=== PATIENT | female | born 1975 | race Caucasian/White ===

== ENCOUNTER 2019-10-30 14:26 | Outpatient (CLI) | payer OTHER, SELFPAY ==
--- NOTE | ~2019-10-30 | MM_ITS ---
EXAMINATION: MM screening leni BI w lat[place] HISTORY: Screening mammogram TECHNIQUE: Craniocaudal and mediolateral oblique 3-D tomosynthesis images were obtained and synthetic 2-D images were generated. CAD analysis was submitted and interpreted. COMPARISON: 08/05/2018 bilateral digital screening mammogram BREAST PARENCHYMAL COMPOSITION: There are scattered areas of fibroglandular density. FINDINGS: There is no evidence of suspicious mass, calcification, or architectural distortion to sugg est malignancy in either breast. There has been no suspicious interval change. IMPRESSION: 1. No mammographic evidence of malignancy. 2. Recommend routine screening mammography in one year. BI-RADS Category 1: Negative Reviewed, dictated and finalized at location A.
== END 2019-10-30 14:27 | disposition home or self-care (01) ==
LOC: ANHIMG 14:28
PROVIDERS: PCP Internal Medicine; Visit Provider Obstetrics & Gynecology
DX: Z12.31 Encounter for screening mammogram for malignant neoplasm of breast (principal)
CPT/HCPCS: 77063; 77067

== ENCOUNTER 2019-11-24 00:44 | Outpatient (CLI) | payer OTHER, SELFPAY ==
[2019-11-24 17:00] LABS: SARS-CoV-2 RNA PCR Negative
== END 2019-11-24 00:45 | disposition home or self-care (01) ==
LOC: ANHCOVIDDT 00:44
PROVIDERS: PCP Internal Medicine; Visit Provider Obstetrics & Gynecology
DX: Z20.828 Contact with and (suspected) exposure to other viral communicable diseases (principal); Z01.812 Encounter for preprocedural laboratory examination
CPT/HCPCS: 87635; C9803; U0003

== ENCOUNTER 2019-11-24 08:39 | Outpatient (CLI) | payer OTHER, SELFPAY ==
--- NOTE | 2019-11-24 09:12 | ECG_ITS ---
Measurements Intervals [place] Rate: 65 P: -5 MS: 132 QRS: 36 QRSD: 85 T: 9 QT: 425 QTc: 444 Interpretive Statements SINUS RHYTHM LOW QRS VOLTAGE IN PRECORDIAL LEADS BORDERLINE T WAVE ABNORMALITY- INFERIOR LEADS BORDERLINE ECG Electronically Signed On 11-24-2019 10:10:53 CDT by Venkat Malone D.O.
== END 2019-11-24 08:40 | disposition home or self-care (01) ==
LOC: ANHLAB 08:42
PROVIDERS: PCP Internal Medicine; Visit Provider Obstetrics & Gynecology
DX: N39.3 Stress incontinence (female) (male) (principal); I10 Essential (primary) hypertension; Z01.818 Encounter for other preprocedural examination; R94.31 Abnormal electrocardiogram [ECG] [EKG]
CPT/HCPCS: 36415; 86850; 86900; 86901; 93005

== ENCOUNTER 2019-11-26 01:02 | Day surgery (SDC) | payer OTHER, SELFPAY ==
[2019-11-14 15:21] VITALS: BMI 27.4
--- NOTE | 2019-11-25 21:50 | PM.IMHP ---
H&P: HPI History of Present Illness Chief complaint: ROGE Narrative: 44 y/o who is tired of having small volume loss of urine. She will leak with coughing, sneezing, lifting, laughing, and sometimes with intercourse. She has nocturia once a night. She has no dysuria, no urgency, no frequency, no hematuria. She feels like she empties her bladder fully. When she works out at the gym, she has to stop her workout fci through to go empty her bladder again so she does not leak so much. She has to cross her legs when she sneezes. Review of Systems Review of Systems: All systems reviewed & are unremarkable except as noted in HPI and below PMFSH Past Medical History Medical History (Updated 11/25/19 @ 21:56 by Alex Mayer MD) Anxiety Depression Hypertension Surgical History Surgical History History of Achilles tendon repair History of cholecystectomy Family History Family History Mother Hypertension Father Family history of diabetes mellitus in first degree relative Other Family history of malignant neoplasm Social History Social History Smoking status: Never smoker Second hand tobacco smoke exposure: No Alcohol intake: current Meds Home Medications and Allergies Home Medications Medication Instructions Recorded Confirmed Type lorazepam 0.5 mg tablet 0.5 mg PO BID PRN #30 tablet 08/26/19 11/14/19 Rx sertraline 50 mg tablet 50 mg PO DAILY #90 tablet 09/02/19 11/14/19 Rx losartan 100 mg tablet 100 mg PO DAILY #90 tablet 09/24/19 11/14/19 Rx cetirizine 10 mg PO DAILY 11/14/19 11/14/19 History Allergies Allergy/AdvReac Type Severity Reaction Status Date / Time codeine Allergy Unknown Nausea And Verified 11/14/19 15:22 Vomiting ondansetron AdvReac Unknown Anxiety Verified 11/14/19 15:22 Exam Const: Orientation/consciousness: patient oriented x3 Other: Well-developed, well-nourished female in no acute distress. Neck: Thyroid: thyroid normal Lymphatic: no lymphadenopathy noted (in neck, axilla or inguinal nodes) Resp: Effort & Inspection: normal respiratory effort Auscultation: clear to auscultation bilaterally Cardio: Rate: regular rate Rhythm: regular rhythm Heart sounds: S1 normal heart sound present and S2 normal heart sound present GI: Other: ABD: Soft, nontender, nondistended. No guarding or rebound tenderness. No hepatosplenomegaly. : General: Yes no CVA tenderness Other: External genitalia: normal female hair distribution, without lesion. Urethral meatus: no lesion, non prolapsed. Urethral hypermobility is obvious. PVR is 10mL. Bladder: no mass, nontender Vagina: well-estrogenized, without lesion or discharge. No cystocele or rectocele. Cervix: no lesion or discharge. IUD strings are noted. Uterus: small, anteverted, freely mobile, nontender Adnexa: no mass or tenderness. Anus/perineum: no lesions, nontender Back/Spine/Pelvis: Back: no CVA tenderness Skin: General skin exam: normal color and no rashes or lesions noted Neuro: General: patient oriented x3 Extrem: Other: Extremities: nontender with no edema Psych: Mental Status: mental status grossly normal Affect: normal affect Assessment and Plan Assessment and plan (1) ROGE (stress urinary incontinence, female): Code(s): N39.3 - Stress incontinence (female) (male) Status: Acute Assessment and Plan: We have reviewed options and the patient is interested in surgical management. I have offered TVT with cystoscopy. She understands risks of surgery to include risks of anesthesia, risks of pain, infection, bleeding, blood products, thromboembolic phenomena and damage to adjacent structures such as bowel, bladder, ureters, blood vessels and nerves. Furthermore, she understands risks associated with mesh erosion, ri
[2019-11-26] VITALS (9 sets, daily range): BP systolic 132–158; BP diastolic 78–98; PULSE 58–117; RESP 11–18; TEMP 36.1–36.7; O2SAT 100
--- NOTE | 2019-11-26 12:27 | WPDHPUPDATE1 ---
History and Physical Update Update Date/Time: 11/26/19 12:27 History and Physical has been reviewed, including an updated exam of the patient. There are NO changes in the patient's condition. Risks, benefits, and alternatives have been discussed and questions answered. Patient agrees to proceed with procedure.
[2019-11-26] MEDS: LACTATED RINGERS 1,000 ML 30 ML IV CONT (13:00)
--- NOTE | 2019-11-26 13:08 | P.PNAN_ITS ---
Anes - Initial Pre Proc Eval Procedure: Operation Date: 11/26/19 12:45 Proposed Procedures p Tension Free Vaginal Taping - Alex Mayer MD Date/Time: 11/26/19 13:08 Surgeon: Alex Mayer MD Pre Op Diagnosis: ROGE Patient Data Age: 44 Gender: F Height: 1.63 m Weight: 72.9 kg Allergies Allergy/AdvReac Type Severity Reaction Status Date / Time codeine Allergy Unknown Nausea And Verified 11/26/19 13:01 Vomiting ondansetron AdvReac Unknown Anxiety Verified 11/26/19 13:01 Home Medications Medication Instructions Recorded Confirmed Type lorazepam 0.5 mg tablet 0.5 mg PO BID PRN #30 tablet 08/26/19 11/26/19 Rx sertraline 50 mg tablet 50 mg PO DAILY #90 tablet 09/02/19 11/26/19 Rx losartan 100 mg tablet 100 mg PO DAILY #90 tablet 09/24/19 11/26/19 Rx cetirizine 10 mg PO DAILY 11/14/19 11/26/19 History Patient hx anesthesia problems: none Family hx anesthesia problems: none [facility], [facility] Past Medical History Medical History (Updated 11/25/19 @ 21:56 by Alex Mayer MD) Anxiety Depression Hypertension Surgical History Surgical History History of Achilles tendon repair History of cholecystectomy Family History Family History Mother Hypertension Father Family history of diabetes mellitus in first degree relative Other Family history of malignant neoplasm Social History Social History Smoking status: Never smoker Second hand tobacco smoke exposure: No Alcohol intake: current Anes - Eval Final PreProcedure Day of Procedure 11/26/19 13:08 Patient weight: overweight Heart: regular rate and rhythm Lungs: clear to auscultation and normal air movement Airway: Mallampati scale class 1 Neurological: alert and oriented Last oral intake: >/= 8 hours ASA classification: II Emergent: no Anesthetic plan: proceed Anesthesia type and monitoring: general LMA and standard monitoring Informed Consent: The patient's anesthetic plan and its attendant risks and benefits were discussed with the patient/family/POA. Questions were solicited and answers provided to the satisfaction of the patient/family/POA.
[2019-11-26] MEDS: SCOPOLAMINE 1.5 MG PATCH TRANSDERM (13:10)
[2019-11-26] MEDS: KETOROLAC 30 MG/ML VIAL (*BKC) IV PUSH (14:31)
--- NOTE | 2019-11-26 14:53 | PM.PROC ---
Procedure Note - Detailed Date of procedure: 11/26/19 Pre-op diagnosis: ROGE Genuine stress urinary incontinence Post-op diagnosis: same Procedure performed: Tension-free vaginal taping with cystoscopy Description of procedure: The patient was taken to the operating room where general endotracheal anesthesia was administered. She was prepared and draped in the usual sterile fashion in the dorsal lithotomy position. She received cefazolin preoperatively. A Hathaway catheter was placed. The vaginal epithelium underlying the mid-urethra was identified and elevated using Allis clamps. A midline incision was made and was dissected laterally using the Metzenbaum scissors. The bladder was then reflected away to the patient's left and the TVT needle was advanced along the right side, exiting above the symphysis pubis. The bladder was reflected to the contralateral side and the left needle was placed. The Hathaway was withdrawn. Cystoscopy was performed and the bladder was noted to be intact. The Hathaway catheter was replaced and the bladder was drained. The TVT sling was advanced into position using a Parker scissors for spacing. The vaginal epithelium was reapproximated with a single [id number] suture 2 0 chromic. The suprapubic exit sites were reapproximated using Dermabond. Hemostasis was excellent. Sponge, lap, needle and instrument counts were correct. The patient was awakened and taken to recovery room in stable condition. I was present and scrubbed through the entire procedure. Implants: TVT sling Anesthesia: GETA Surgeon: Alex Mayer MD Estimated blood loss (mL): 10 Drains: Yes (hathaway) Packing: No Pathology: none sent Complications: None Condition: stable Disposition: PACU Findings: Bladder intact. Bilateral ureteral ejaculation noted.
--- NOTE | 2019-11-26 15:48 | SUR.PHASEI ---
1540; INSTILLED 150ML STERILE NS INTO BLADDER. HEWITT THEN REMOVED PER DR ROBISON'S ORDERS
== END 2019-11-26 17:22 | disposition home or self-care (01) ==
PROVIDERS: PCP Internal Medicine; Visit Provider Obstetrics & Gynecology
PROC: 0TSD0ZZ Reposition Urethra, Open Approach (ICD-10-PCS; CPT 57288; principal; 2019-11-26 12:45)
DX: N39.3 Stress incontinence (female) (male) (principal); I10 Essential (primary) hypertension; F41.8 Other specified anxiety disorders
CPT/HCPCS: 57288; A9270; C1771; J1100; J1200; J1885; J2250; J2704; J3010; J7030; J7120

== ENCOUNTER 2021-09-21 12:47 | Outpatient (CLI) | payer OTHER, SELFPAY ==
[2021-09-21 13:38] LABS: Appearance Urine Clear (Clear); Bilirubin Urine Negative (Negative); Blood Urine 2+ (Negative); Color Urine Yellow (Yellow); Glucose Urine UA Negative (Negative); Ketones Urine Negative (Negative); Leukocyte Esterase Ur 2+ LEU/UL (Negative); Nitrate Urine Positive (Negative); Protein Urine Negative (Negative); Urobilinogen Urine 0.2 mg/dL (<2.0); pH Urine 6.5 (5.0-9.0)
[2021-09-21 14:12] LABS: Bacteria Urine Trace /hpf; Mucus Urine Rare /lpf; RBC Urine 0-2 /hpf (0-2); Squamous Epithelial Cell Urine Occasional /hpf (Few); WBC Urine 21-30 /hpf
[2021-09-21 14:14] LABS: Add Urine Microscopic? YES
== END 2021-09-21 12:48 | disposition home or self-care (01) ==
LOC: ANHLAB 12:48
PROVIDERS: PCP Internal Medicine; Visit Provider Internal Medicine
DX: R30.0 Dysuria (principal)
CPT/HCPCS: 81001; 87077; 87086; 87186

== ENCOUNTER 2021-10-25 13:09 | Outpatient (CLI) | payer OTHER, SELFPAY ==
[2021-10-25 13:43] LABS: Appearance Urine Slightly Cloudy (Clear); Bilirubin Urine Negative (Negative); Blood Urine 2+ (Negative); Glucose Urine UA Negative (Negative); Ketones Urine Negative (Negative); Leukocyte Esterase Ur 3+ LEU/UL (Negative); Nitrate Urine Negative (Negative); Protein Urine Negative (Negative); Specific Grav Ur 1.015 (1.001-1.035); Urobilinogen Urine 0.2 mg/dL (<2.0)
[2021-10-25 13:47] LABS: Add Urine Microscopic? YES; Color Urine Light Yellow (Yellow)
[2021-10-25 13:49] LABS: Bacteria Urine Trace /hpf; Mucus Urine Rare /lpf; Squamous Epithelial Cell Urine Rare /hpf (Few); WBC Urine >75 /hpf
== END 2021-10-25 13:10 | disposition home or self-care (01) ==
LOC: ANHLAB 13:10
PROVIDERS: PCP Internal Medicine; Visit Provider Internal Medicine
DX: R30.0 Dysuria (principal)
CPT/HCPCS: 81001; 87086

== ENCOUNTER 2022-01-26 15:50 | Outpatient (CLI) | payer OTHER, SELFPAY ==
--- NOTE | ~2022-01-26 | MM_ITS ---
EXAMINATION: MM screening leni BI w [place] HISTORY: Screening mammogram TECHNIQUE: Craniocaudal and mediolateral oblique 3-D tomosynthesis images were obtained and synthetic 2-D images were generated. CAD analysis was submitted and interpreted. COMPARISON: 10/30/2019 and bilateral screening mammogram examinations BREAST PARENCHYMAL COMPOSITION: There are scattered areas of fibroglandular density. FINDINGS: There is no evidence of suspicious mass, calcification, or architectural distortion to sugg est malignancy in either breast. There has been no suspicious interval change. IMPRESSION: 1. No mammographic evidence of malignancy. 2. Recommend routine screening mammography in one year. BI-RADS Category 1: Negative Reviewed, dictated and finalized at location A.
== END 2022-01-26 15:51 | disposition home or self-care (01) ==
PROVIDERS: PCP Internal Medicine; Visit Provider Obstetrics & Gynecology
DX: Z12.31 Encounter for screening mammogram for malignant neoplasm of breast (principal)
CPT/HCPCS: 77063; 77067

== ENCOUNTER 2022-10-30 14:31 | Emergency (ER) | payer OTHER, BC, SELFPAY ==
--- NOTE | ~2022-10-30 | CT_ITS ---
EXAMINATION: CT abdomen pelvis w con DATE: 10/30/2022 20:55 INDICATION: N/V TECHNIQUE: Computed tomography (CT) of the abdomen and pelvis was performed with 100 mL Omnipaque-350 intravenous contrast. Automated exposure control and iterative reconstruction technique were employe d. The dose-length product was 605.96 mGy-cm. COMPARISON: 07/19/2015. FINDINGS: Lower thorax: Unremarkable. Left lower lobe peripheral intrapulmonary lymph node. Liver: Normal. Biliary/Gallbladder: Gallbladder is absent. No bile duct dilation. Pancreas: No mass or duct dilation. Spleen: Normal. Adrenals:No mass. Kidneys: No mass, stone, or hydronephrosis. GI tract: Distal esophageal and gastric wall edema. Fluid-filled colon. No small or large bowel dilat ion. Normal appendix. Mesentery/Peritoneum: No ascites, mass, or free air. Retroperitoneum: No mass. Pelvis: Uterine fibroids. Bladder wall edema. Soft Tissues: Soft tissues and body wall unremarkable. Bones: No acute osseous finding. IMPRESSION: Mild esophagitis/gastritis. Fluid-filled colon as can be seen with diarrheal illness. Bladder wall ed sobeida, possibly due to cystitis, correlate with urinalysis. Reviewed, dictated and finalized at location K. IMPRESSION: Mild esophagitis/gastritis. Fluid-filled colon as can be seen with diarrheal il lness. Bladder wall edema, possibly due to cystitis, correlate with urinalysis.
[2022-10-30 14:57] VITALS: BP 131/95; PULSE 97; RESP 18; TEMP 36.5; O2SAT 100
[2022-10-30 15:08] LABS: Basophils Percent Auto 0.2 % (0.2-1.2); Eosinophils Percent Auto 0.2 % (0-4.4); Hemoglobin 13.3 g/dL (12.0-15.0); Immature Granulocyte Absolute 0.09 K/mm3 (0.00-0.031); Immature Granulocyte Percent A 0.4 % (0-0.5); Lymphocytes Absolute Auto 1.68 K/mm3 (0.9-3.2); Lymphocytes Percent Auto 7.9 % (18.3-44.2); Mean Corpuscular HGB Conc 33.3 g/dl (32-36); Mean Corpuscular Hemoglobin 27.4 pg (26-34); Mean Corpuscular Volume 82.5 fl (80-100); Mean Platelet Volume 9.4 fl (7.4-10.4); Monocytes Percent Auto 4.5 % (2.6-8.5); Neutrophils Absolute Auto 18.4 K/mm3 (1.3-6.7); Neutrophils Percent Auto 86.8 % (45.5-73.1); Platelet Count Result 463 k/mm3 (150-375); Red Blood Count 4.85 M/mm3 (4.2-5.4); Red Cell Distribution Width 12.4 % (11.5-14.5); White Blood Count 21.2 K/mm3 (4.5-10.0)
[2022-10-30 15:30] LABS: Alanine Aminotransferase 27 U/L (6-35); Alkaline Phosphatase 80 U/L (38-126); Anion Gap 19 mmol/L (8-16); Aspartate Amino Transferase 37 U/L (14-36); Blood Urea Nitrogen 8 mg/dL (7-17); Calcium 9.3 mg/dL (8.4-10.2); Carbon Dioxide 12 mmol/L (22-30); Chloride 103 mmol/L (98-107); Estimated Glomerular Filt Rate 60; Glucose 203 mg/dL (65-110); Lipase 45 U/L (23-300); Potassium 3.9 mmol/L (3.4-5.0); Sodium 134 mmol/L (137-145)
[2022-10-30 17:09] VITALS: BP 127/90; PULSE 99; RESP 20; TEMP 36.1; O2SAT 100
--- NOTE | 2022-10-30 20:08 | ED.GENADULT ---
HPI - General Adult General Chief complaint: Nausea/Vomiting/Diarrhea <Manuel Lovett PA-C - Last Filed: 10/30/22 22:17> Stated complaint: N/V since 11 today <Manuel Lovett PA-C - Last Filed: 10/30/22 22:17> Time Seen by Provider: 10/30/22 20:02 <Manuel Lovett PA-C - Last Filed: 10/30/22 22:17> Source: patient <AREN Vila Last Filed: 10/30/22 22:17> Mode of arrival: ambulatory <AREN Vila Last Filed: 10/30/22 22:17> Limitations: no limitations <Manuel Lovett PA-C - Last Filed: 10/30/22 22:17> History of Present Illness HPI narrative: This is a 47-year-old female with history of IBS who presents to the ED via EMS for chief complaint of sudden onset of nausea and vomiting around 1130 this morning. 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 Reports over 10 episodes of vomiting with last episode 4 hours ago.. Denies hematemesis. Also reports an episode of loose stools this morning. Before today bowel movements have been regular for her. She is passing gas. She denies any abdominal pain whatsoever. Denies fevers or chills, cough, urinary symptoms. She is unsure of any association with food. No known sick contacts. Her is here and ate the same things that she did last night and has not had any problems. States she has not eaten anything today. Past surgical history of cholecystectomy. <AREN Vila Last Filed: 10/30/22 22:17> Related Data Home medications: Home Medications Medication Instructions Recorded Confirmed cetirizine 10 mg tablet 10 mg PO DAILY 11/14/19 08/16/22 <Manuel Lovett PA-C - Last Filed: 10/30/22 22:17> Allergies/adverse reactions: Allergies Allergy/AdvReac Type Severity Reaction Status Date / Time codeine Allergy Unknown Nausea And Verified 10/30/22 20:08 Vomiting sulfamethoxazole AdvReac Intermediate Vomiting Verified 10/30/22 20:08 [From Bactrim] trimethoprim [From Bactrim] AdvReac Intermediate Vomiting Verified 10/30/22 20:08 <Manuel Lovett PA-C - Last Filed: 10/30/22 22:17> Review of Systems Review of Systems: CONSTITUTIONAL: Denies fever, chills, or sweats. EYES: Denies visual changes, redness, or discharge. ENT: Denies rhinorrhea, congestion, sore throat, or otalgia. CARDIOVASCULAR: Denies chest pain, palpitations, or edema. RESPIRATORY: Denies cough or dyspnea. GASTROINTESTINAL: See HPI GENITOURINARY: Denies dysuria or hematuria. SKIN: Denies rash or itching. MUSCULOSKELETAL: Denies back pain, joint pain, or myalgia. NEUROLOGIC: Denies headache, numbness, dizziness, or weakness. PSYCHIATRIC: Denies anxiety or depression. <Manuel Lovett PA-C - Last Filed: 10/30/22 22:17> [facility] Past Medical History Medical History: Medical History Anxiety Depression Hypertension <Manuel Lovett PA-C - Last Filed: 10/30/22 22:17> Surgical History Surgical History: Surgical History History of Achilles tendon repair History of cholecystectomy History of tonsillectomy <Manuel Lovett PA-C - Last Filed: 10/30/22 22:17> Family History Family History: Family History Mother Hypertension Father Family history of diabetes mellitus in first degree relative Other Family history of malignant neoplasm <AREN Vila Last Filed: 10/30/22 22:17> Social History Social History: Social History Smoking status: Never smoker Second hand tobacco smoke exposure: No Alcohol intake: current Lack of Transportation: No Lack of Food: Never True Current Housing: I Have Housing Concerned About Future Housing: No Difficulty Paying Gas/Electric Bills: No Difficulty Paying for Meds: No Currentl
[2022-10-30 20:10] VITALS: BP 159/104; PULSE 80; RESP 18; O2SAT 100
[2022-10-30] MEDS: ONDANSETRON INJ 4 MG/2 ML VIAL IV PUSH (20:25)
[2022-10-30] MEDS: SODIUM CHLORIDE 0.9% IV 1,000 ML 999 ML IV CONT (20:25)
[2022-10-30 21:15] VITALS: BP 155/97; PULSE 89; RESP 16; O2SAT 100
[2022-10-30 21:17] LABS: Influenza A QL RT-PCR Negative (Negative); Influenza B QL RT-PCR Negative (Negative); RSV RNA, RT-PCR Negative (Negative); SARS-CoV-2 RNA PCR Negative (Negative)
[2022-10-30 21:35] LABS: Appearance Urine Turbid (Clear); Bilirubin Urine 2+ (Negative); Blood Urine 1+ (Negative); Color Urine Dark Yellow (Yellow); Glucose Urine UA Negative (Negative); Ketones Urine 1+ mg/dL (Negative); Leukocyte Esterase Ur 3+ LEU/UL (Negative); Need Manual Microscopic Reviewed; Nitrate Urine Negative (Negative); Non Pathogenic Casts >20; Protein Urine 2+ mg/dL (Negative); Specific Grav Ur 1.022 (1.001-1.035); Squamous Epithelial Cell Urine Few /hpf (Few); WBC Urine >100 /hpf; pH Urine 5.5 (5.0-9.0)
[2022-10-30 21:37] LABS: Add Urine Microscopic? YES; Bacteria Urine 2+ /hpf
[2022-10-30 21:54] VITALS: BP 153/90; PULSE 81; RESP 18; O2SAT 100
== END 2022-10-30 21:57 | disposition home or self-care (01) ==
PROVIDERS: Emergency Medicine; Emergency Provider Physician Assistant; PCP Internal Medicine
DX: K52.9 Noninfective gastroenteritis and colitis, unspecified (principal); N39.0 Urinary tract infection, site not specified; Z20.822 Contact with and (suspected) exposure to COVID-19; F41.9 Anxiety disorder, unspecified; F32.A Depression, unspecified; I10 Essential (primary) hypertension
CPT/HCPCS: 36415; 74177; 80053; 81001; 81025; 83690; 85025; 87086; 87637; 96361; 96374; 96375; 99284; J0696; J2405; J7030; Q9967

== ENCOUNTER 2023-04-23 08:15 | Day surgery (SDC) | payer OTHER, BC, SELFPAY ==
[2023-04-06 09:38] VITALS: BMI 27.2
[2023-04-23 10:37] VITALS: BMI 28.1
[2023-04-23 10:54] VITALS: BP 168/110; PULSE 74; RESP 16; TEMP 37.2; O2SAT 100
[2023-04-23] MEDS: LACTATED RINGERS 1,000 ML 150 ML IV CONT (11:05)
--- NOTE | 2023-04-23 11:24 | WPDANESEPPF ---
Anes - Initial Pre Proc Eval Procedure: Operation Date: 04/23/23 13:30 Proposed Procedures p Screening Colonoscopy - David Melchor MD Date/Time: 04/23/23 11:24 Surgeon: David Melchor MD Pre Op Diagnosis: Neoplasm Screening Patient Data Age: 47 Gender: F Height: 1.63 m Weight: 74.5 kg Last Vital Signs Temp 37.2 C 04/23/23 10:54 Pulse 74 04/23/23 10:54 Resp 16 04/23/23 10:54 BP 168/110 H 04/23/23 10:54 Pulse Ox 100 04/23/23 10:54 O2 Del Method Room Air 04/23/23 10:54 Allergies Allergy/AdvReac Type Severity Reaction Status Date / Time sulfamethoxazole AdvReac Intermediate Vomiting Verified 04/23/23 10:38 [From Bactrim] trimethoprim [From Bactrim] AdvReac Intermediate Vomiting Verified 04/23/23 10:38 codeine AdvReac Unknown Nausea And Verified 04/23/23 10:38 Vomiting Home Medications Medication Instructions Recorded Confirmed Type cetirizine 10 mg tablet 10 mg PO DAILY 11/14/19 04/23/23 History sertraline 50 mg tablet 50 mg PO DAILY #90 tabs 06/03/21 04/23/23 Rx albuterol sulfate 90 mcg/actuation 2 inh inhalation Q4-6H #18 grams 06/24/21 04/23/23 Rx aerosol inhaler (ProAir HFA) bupropion HCl 150 mg 24 hr tablet, 150 mg PO QAM #90 tabs 04/03/22 04/23/23 Rx extended release losartan 100 mg tablet 100 mg PO DAILY #90 tabs 04/11/22 04/23/23 Rx lorazepam 0.5 mg tablet 0.5 mg PO BID PRN anxiety #90 tabs 04/17/22 04/23/23 Rx diltiazem HCl 180 mg 180 mg PO DAILY #90 caps 02/14/23 04/23/23 Rx capsule,extended release 24 hr L norgest/E estradiol-E estrad 1 tablet PO DAILY 04/06/23 04/23/23 History 0.15 mg-30 mcg (84)/10 mcg(7) tabs,3mos Patient hx anesthesia problems: none Family hx anesthesia problems: none Results Review: All pre-operative results and documents have been reviewed as part of the pre-operative evaluation. [facility] Past Medical History Medical History Anxiety Depression Hypertension Surgical History Surgical History History of Achilles tendon repair History of cholecystectomy History of tonsillectomy Family History Family History Mother Hypertension Father Family history of diabetes mellitus in first degree relative Other Family history of malignant neoplasm Social History Social History Smoking status: Never smoker Second hand tobacco smoke exposure: No Alcohol intake: current Drinks per week: 8 Substance use: never Substance use type: does not use Lack of Transportation: No Lack of Food: Never True Current Housing: I Have Housing Concerned About Future Housing: No Difficulty Paying Gas/Electric Bills: No Difficulty Paying for Meds: No Currently Unemployed: No Education: Master's Degree or Higher Difficulty w/ Childcare or Family Care: No Living arrangements: with family Spiritual care concerns: No Anes - Eval Final PreProcedure Day of Procedure 04/23/23 11:24 Patient weight: overweight Heart: regular rate and rhythm Lungs: clear to auscultation Airway: Mallampati scale class II Neurological: alert and oriented Last oral intake: >/= 8 hours ASA classification: II Emergent: no Anesthetic plan: proceed Anesthesia type and monitoring: general GIVS and standard monitoring Results Review: All pre-operative results and documents have been reviewed as part of the pre-operative evaluation. Informed Consent: The patient's anesthetic plan and its attendant risks and benefits were discussed with the patient/family/POA. Questions were solicited and answers provided to the satisfaction of the patient/family/POA.
--- NOTE | 2023-04-23 11:44 | PM.HPGS ---
History of Present Illness History of Present Illness Consent: Risks, benefits, and alternatives have been discussed and questions answered. Patient agrees to proceed with procedure. Chief complaint: Neoplasm Screening Narrative: Erica Campos is a 47 year old female here for first screening colonoscopy Review of Systems Constitutional: Constitutional: Denies headache(s) and Denies weakness Eyes: Eyes: Denies blurry vision ENT: Reports Normal hearing present, Denies headache(s) and Denies neck pain Cardiovascular: Cardiovascular: Denies chest pain and Denies dyspnea Respiratory: Respiratory: Denies dyspnea Gastrointestinal: Gastrointestinal: Reports no additional gastrointestinal complaints Genitourinary: Genitourinary: Denies dysuria Musculoskeletal: Musculoskeletal: Denies neck pain Integumentary/Breasts: Skin/Breast: Denies dry skin Neurologic: Reports Normal hearing present, Denies headache(s) and Denies weakness Psychiatric: Psychiatric: Denies anxiety Endocrine: Endocrine: Denies change in body appearance Hematologic/Lymphatic: Hematologic/Lymphatic: Denies easy bleeding Allergic/Immunologic: Allergic/Immunologic: Denies urticaria PMF Past Medical History Medical History (Updated 04/23/23 @ 11:44 by David Melchor MD) Anxiety Colon cancer screening Depression Hypertension Surgical History Surgical History History of Achilles tendon repair History of cholecystectomy History of tonsillectomy Family History Family History Mother Hypertension Father Family history of diabetes mellitus in first degree relative Other Family history of malignant neoplasm Social History Social History Smoking status: Never smoker Second hand tobacco smoke exposure: No Alcohol intake: current Drinks per week: 8 Substance use: never Substance use type: does not use Lack of Transportation: No Lack of Food: Never True Current Housing: I Have Housing Concerned About Future Housing: No Difficulty Paying Gas/Electric Bills: No Difficulty Paying for Meds: No Currently Unemployed: No Education: Master's Degree or Higher Difficulty w/ Childcare or Family Care: No Living arrangements: with family Spiritual care concerns: No Meds Home Medications and Allergies Home Medications Medication Instructions Recorded Confirmed Type cetirizine 10 mg tablet 10 mg PO DAILY 11/14/19 04/23/23 History sertraline 50 mg tablet 50 mg PO DAILY #90 tabs 06/03/21 04/23/23 Rx albuterol sulfate 90 mcg/actuation 2 inh inhalation Q4-6H #18 grams 06/24/21 04/23/23 Rx aerosol inhaler (ProAir HFA) bupropion HCl 150 mg 24 hr tablet, 150 mg PO QAM #90 tabs 04/03/22 04/23/23 Rx extended release losartan 100 mg tablet 100 mg PO DAILY #90 tabs 04/11/22 04/23/23 Rx lorazepam 0.5 mg tablet 0.5 mg PO BID PRN anxiety #90 tabs 04/17/22 04/23/23 Rx diltiazem HCl 180 mg 180 mg PO DAILY #90 caps 02/14/23 04/23/23 Rx capsule,extended release 24 hr L norgest/E estradiol-E estrad 1 tablet PO DAILY 04/06/23 04/23/23 History 0.15 mg-30 mcg (84)/10 mcg(7) tabs,3mos Allergies Allergy/AdvReac Type Severity Reaction Status Date / Time sulfamethoxazole AdvReac Intermediate Vomiting Verified 04/23/23 10:38 [From Bactrim] trimethoprim [From Bactrim] AdvReac Intermediate Vomiting Verified 04/23/23 10:38 codeine AdvReac Unknown Nausea And Verified 04/23/23 10:38 Vomiting Vital Signs Vital Signs - 24 hr 04/23/23 10:54 Temperature 98.9 F Pulse Rate 74 Respiratory Rate 16 Blood Pressure 168/110 H Pulse Oximetry 100 Oxygen Delivery Room Air Exam Const: General: comfortable and no acute distress HENMT: Face/Nose/Sinus: Normal nares present Eyes: General: appearance normal, both ey
[2023-04-23 11:47] VITALS: BP 171/100
--- NOTE | 2023-04-23 11:48 | SUR.PREOP ---
PT'S BP RECHECKED. REMAINS HIGH AT 171/100. PT AWAKE AND ALERT. JESI ALONSO CRNA NOTIFIED.
[2023-04-23 12:06] VITALS: BP 146/100; PULSE 75; RESP 16; O2SAT 100
[2023-04-23 12:16] VITALS: BP 159/103; PULSE 63; RESP 18; O2SAT 100
--- NOTE | 2023-04-23 12:20 | WPDANESPN ---
Anes - Prog Note Post-Op Date/Time: 04/23/23 12:20 Cardiovascular status: normal Respiratory status: normal Airway patency: baseline Mental status: baseline Post-Op hydration status: normal Vital Signs: Last Vital Signs Temp 37.2 C 04/23/23 10:54 Pulse 75 04/23/23 12:06 Resp 16 04/23/23 12:06 BP 146/100 H 04/23/23 12:06 Pulse Ox 100 04/23/23 12:06 O2 Del Method Room Air 04/23/23 12:06 Pain Score (VAS): 0 I/O: Intake & Output 04/22/23 04/23/23 04/23/23 23:59 07:59 15:59 Intake Total 400 Balance 400 Patient Feedback: Patient satisfied with anesthetic care.
[2023-04-23 12:26] VITALS: BP 164/101; PULSE 62; RESP 18; O2SAT 100
== END 2023-04-23 12:40 | disposition home or self-care (01) ==
PROVIDERS: PCP Internal Medicine; Visit Provider Internal Medicine Gastroenterology
PROC: 0DJD8ZZ Inspection of Lower Intestinal Tract, Via Natural or Artificial Opening Endoscopic (ICD-10-PCS; CPT 45378; principal; 2023-04-23 13:30)
DX: Z12.11 Encounter for screening for malignant neoplasm of colon (principal); D12.4 Benign neoplasm of descending colon; K64.8 Other hemorrhoids
CPT/HCPCS: 45385

== ENCOUNTER 2023-04-23 12:13 | Outpatient (NON) | payer OTHER, BC, SELFPAY | END 2023-04-23 12:14 | disposition home or self-care (01) | PROVIDERS: PCP Internal Medicine; Visit Provider Internal Medicine Gastroenterology | DX: Z12.11 Encounter for screening for malignant neoplasm of colon (principal); K63.5 Polyp of colon | CPT/HCPCS: 88305 ==

== ENCOUNTER 2023-07-04 15:17 | Outpatient (CLI) | payer OTHER, BC, SELFPAY ==
--- NOTE | ~2023-07-04 | MM_ITS ---
EXAMINATION: MM screening leni BI w [place] HISTORY: Screening mammogram TECHNIQUE: Craniocaudal and mediolateral oblique 3-D tomosynthesis images were obtained and synthetic 2-D images were generated. CAD analysis was submitted and interpreted. COMPARISON: 01/26/2022, 10/30/2019, 08/05/2018 BREAST PARENCHYMAL COMPOSITION:Not Dense. There are scattered areas of fibroglandular density. FINDINGS: No suspicious mass, calcification, or architectural distortion are identified in either mónica ast to suggest malignancy. There has been no suspicious interval change. IMPRESSION: No mammographic evidence of malignancy. Recommend routine screening mammography in one year. BI-RADS Category 1: Negative Reviewed, dictated and finalized at location . R [employer]
== END 2023-07-04 15:18 | disposition home or self-care (01) ==
LOC: ANHIMG 15:49
PROVIDERS: PCP Internal Medicine; Visit Provider Obstetrics & Gynecology
DX: Z12.31 Encounter for screening mammogram for malignant neoplasm of breast (principal)
CPT/HCPCS: 77063; 77067

== ENCOUNTER 2024-04-08 15:26 | Outpatient (CLI) | payer OTHER, BC, SELFPAY ==
--- NOTE | 2024-04-08 15:30 | ECG_ITS ---
Test Date: 2024-04-08 15:41:26 Measurements Intervals [place] Rate: 77 P: 9 NE: 120 QRS: 24 QRSD: 90 T: 9 QT: 394 QTc: 447 Interpretive Statements SINUS RHYTHM No previous ECG available for comparison Electronically Signed On 04-09-2024 14:24:30 CDT by Melchor Walker M.D.
== END 2024-04-08 15:27 | disposition home or self-care (01) ==
LOC: ANHSURGERY 15:30
PROVIDERS: PCP Internal Medicine; Visit Provider Obstetrics & Gynecology
DX: I10 Essential (primary) hypertension (principal); D21.9 Benign neoplasm of connective and other soft tissue, unspecified; Z01.818 Encounter for other preprocedural examination
CPT/HCPCS: 36415; 86850; 86880; 86900; 86901; 86902; 93005

== ENCOUNTER 2024-04-11 03:02 | Day surgery (SDC) | payer OTHER, BC, SELFPAY ==
--- NOTE | 2024-04-02 15:48 | SUR.PREOP ---
Report to the Outpatient Waiting Room, entrance under the green pavilion located off [facility], at time 1100 on date 04/11/24. Planned Procedure Time: 1300.? Time changes happen often and if your time is changed the preop area will call you the afternoon before. - You and your visitor will be asked to self-screen and do not enter if you have any COVID symptoms. Please call surgeon if you need to reschedule. - A mask is optional within the hospital at this time. Patients may have clear liquids (water, carbonated beverages, clear teas, apple juice) until 3 hours prior to surgery with a maximum of 20 ounces. - NO CLEAR LIQUIDS AFTER 1000 - No food from midnight until time of surgery and no smoking - Infants may have breast milk until 4 hours before surgery, formula 6 hours prior to surgery. - Children will be allowed to drink immediately following surgery.? If applicable, please bring a bottle or sippy cup to assist with drinking. Juice, water, soda, and popsicles are readily available.? For infants on formula, please bring formula the day of surgery.? Pacifiers are allowed. Take only the following medications with a SIP of water on the morning of surgery: DILTIAZEM, SERTRALINE, BUPROPION DO NOT STOP ANY OF YOUR OTHER PRESCRIPTION MEDICATIONS PRIOR TO SURGERY EXCEPT THE FOLLOWING Medications to discontinue per physician N/A Date to take last dose Please no make-up, nail [place], hairspray, perfume, deodorant, or body powder the day of surgery.? No jewelry (including any body piercings) or valuables the day of surgery, leave them at home.? Please take a shower or bath the night before, or the morning of, surgery with an antibacterial soap.? Wear comfortable, loose fitting clothing.? Children are encouraged to wear pajamas. - Jewelry must be removed prior to entering the operating room.? Rings and piercings that are not removed may be cut off. - The hospital will not accept responsibility for valuables.? - Please leave all valuables, including medications, at home the day of surgery. If you are going home after surgery, a licensed route sales delivery driver must drive you home.? - NO public transportation without another adult if you receive anesthesia. - We recommend that an adult stay with you for 24 hours following discharge. - We also recommend that you do not drive, make important decision, drink alcoholic beverages, or take any drugs that were not prescribed by your health care provider for at least 24 hours after your discharge time. For Pediatric surgeries, we recommend two adults accompany the child home. Follow any additional instructions given to you from your surgeon. Telephone instructions given to HUY STANLEY and asked if any additional questions and then verbalized understanding. Patient advised to call surgeon office or pre surgery nurse liaison [phone] if any additional questions.
[2024-04-02 16:00] VITALS: BMI 28.9
--- NOTE | 2024-04-09 07:11 | P.HP_ITS ---
H&P: HPI History of Present Illness Date/Time: 04/09/24 07:11 Chief Complaint: Excessive bleeding/enlarged uterus/uterine fibroid Narrative: Is a 48-year-old 1 para 1002 who is admitted for robotic total vaginal hysterectomy and bilateral salpingectomy secondary to uterine fibroid excessive heavy bleeding and pelvic pain. Dr. Vincent has followed this patient for some time. She was offered medical management as well as cervical management and she opted for surgical procedure. Risks and benefits of the procedure reviewed with the patient. She had all questions answered and asked to proceed PMFSH Past Medical History Medical History Abdominal tenderness, unspecified site Abnormal biliary HIDA scan Acute right ankle pain Allergic rhinitis, unspecified Anxiety Colon cancer screening Depression Dysfunctional gallbladder Early satiety Epigastric abdominal pain Essential (primary) hypertension Herpes zoster without complication Hypertension Onychomycosis of toenail Pure hypercholesterolemia, unspecified Tinea versicolor URI, acute Surgical History Surgical History History of Achilles tendon repair History of cholecystectomy History of tonsillectomy Family History Family History Mother Hypertension Father Family history of diabetes mellitus in first degree relative Other Family history of malignant neoplasm Social History Social History Smoking status: Never smoker Second hand tobacco smoke exposure: No Alcohol intake: current Drinks per week: 8 Substance use: never Substance use type: does not use Do You Feel Safe in your Home?: Yes Lack of Transportation: No Lack of Food: Never True Current Housing: I Have Housing Concerned About Future Housing: No Difficulty Paying Gas/Electric Bills: No Difficulty Paying for Meds: No Currently Unemployed: No Education: Master's Degree or Higher Difficulty w/ Childcare or Family Care: No Living arrangements: with family Occupation/Education: occupation Additional occupation/education comments: teacher-[employer] Gender identity (if verbalized by the patient): Female Spiritual care concerns: No Meds Home Medications and Allergies Home Medications Medication Instructions Recorded Confirmed Type cetirizine 10 mg tablet 10 mg PO DAILY PRN ALLERGIES 11/14/19 04/02/24 History estradiol 0.0375 mg/24 hr weekly 1 patch transdermal WEEKLY 09/05/23 04/02/24 History transdermal patch diltiazem HCl 180 mg 180 mg PO DAILY #90 caps 09/06/23 04/02/24 Rx capsule,extended release 24 hr sertraline 50 mg tablet 50 mg PO DAILY #90 tabs 09/06/23 04/02/24 Rx bupropion HCl 150 mg 24 hr tablet, 150 mg PO QAM #90 tabs 10/31/23 04/02/24 Rx extended release losartan 100 mg tablet 100 mg PO DAILY #90 tabs 10/31/23 04/02/24 Rx Allergies Allergy/AdvReac Type Severity Reaction Status Date / Time sulfamethoxazole AdvReac Intermediate Vomiting Verified 04/02/24 15:33 [From Bactrim] trimethoprim [From Bactrim] AdvReac Intermediate Vomiting Verified 04/02/24 15 :33 codeine AdvReac Unknown Nausea And Verified 04/02/24 15:33 Vomiting Exam Const: General: cooperative, healthy appearing and comfortable Nutritional Appearance: average body habitus Orientation/consciousness: oriented to person, oriented to place and oriented to time Resp: Effort & Inspection: normal respiratory effort Cardio: Rate: regular rate Rhythm: regular rhythm Heart sounds: S1 normal heart sound present and S2 normal heart sound present GI: Inspection: normal to inspection : External Female Exam: normal external appearance Speculum Exam - Vagina: normal appearance of the vagina Speculum Exam - Cervix: normal appearance of the cervix Bimanual exam- vagina & uterus: enlarged Bimanual Exam- Adnexa, other: normal adnexae Assessment and Plan Assessment and plan (1) Hypertension: Code(s): I10 - Essential (primary) hypertension Status: Acute (2) Excessive bleeding: Code(s): R58 - Hemorrhage, not elsewhere classified Status: Acute (3) Uterine fibroid: Code(s): D25.9 - Leiomyoma of uterus, unspecified Status: Acute Assessment and Plan: Proceed with robotic total vaginal hysterectomy and bilateral salpingectomy
[2024-04-11] VITALS (10 sets, daily range): BP systolic 112–145; BP diastolic 70–89; PULSE 63–82; RESP 12–18; TEMP 36.2–36.9; O2SAT 96–100
--- NOTE | 2024-04-11 06:55 | WPDHPUPDATE1 ---
History and Physical Update Update Date/Time: 04/11/24 06:55 History and Physical has been reviewed, including an updated exam of the patient. There are NO changes in the patient's condition. Risks, benefits, and alternatives have been discussed and questions answered. Patient agrees to proceed with procedure.
[2024-04-11 11:33] LABS: BEDSIDEPREGUCG Negative (Negative)
[2024-04-11] MEDS: ACETAMINOPHEN 500 MG TABLET 1000 MG PO ×3 (11:40→23:37)
[2024-04-11] MEDS: KETOROLAC 15 MG/ML VIAL (*BKC) IV PUSH (11:50)
[2024-04-11 11:59] LABS: Basophils Percent Auto 0.6 % (0.2-1.2); Eosinophils Absolute Auto 0.3 K/mm3 (0-0.3); Eosinophils Percent Auto 3.9 % (0-4.4); Hematocrit 36.2 % (37.0-47.0); Hemoglobin 11.9 g/dL (12.0-15.0); Immature Granulocyte Absolute 0.02 K/mm3 (0.00-0.031); Immature Granulocyte Percent A 0.3 % (0-0.5); Lymphocytes Percent Auto 34.1 % (18.3-44.2); Mean Corpuscular HGB Conc 32.9 g/dl (32-36); Mean Corpuscular Hemoglobin 28.2 pg (26-34); Mean Corpuscular Volume 85.8 fl (80-100); Monocytes Absolute Auto 0.5 K/mm3 (0.1-0.6); Neutrophils Absolute Auto 3.5 K/mm3 (1.3-6.7); Neutrophils Percent Auto 54.1 % (45.5-73.1); Platelet Count Result 322 k/mm3 (150-375); Red Blood Count 4.22 M/mm3 (4.2-5.4); Red Cell Distribution Width 12.5 % (11.5-14.5); White Blood Count 6.5 K/mm3 (4.5-10.0)
--- NOTE | 2024-04-11 14:18 | P.PNAN_ITS ---
Anes - Initial Pre Proc Eval Procedure: Operation Date: 04/11/24 13:00 Proposed Procedures p Robotic Assisted Total Vaginal Hysterectomy with Bilateral Salpingectomy - Gonzalo Teran MD Date/Time: 04/11/24 14:18 Surgeon: Gonzalo Teran MD Pre Op Diagnosis: Heavy Bleeding, Fibroids, Pelvic Pain Patient Data Age: 48 Gender: F Height: 1.63 m Weight: 80.5 kg Last Vital Signs Temp 36.7 C 04/11/24 11:35 Pulse 77 04/11/24 11:35 Resp 18 04/11/24 11:35 BP 145/87 H 04/11/24 11:35 Pulse Ox 100 04/11/24 11:35 O2 Del Method Room Air 04/11/24 11:35 Allergies Allergy/AdvReac Type Severity Reaction Status Date / Time sulfamethoxazole AdvReac Intermediate Vomiting Verified 04/11/24 11:28 [From Bactrim] trimethoprim [From Bactrim] AdvReac Intermediate Vomiting Verified 04/11/24 11:28 codeine AdvReac Unknown Nausea And Verified 04/11/24 11:28 Vomiting Home Medications Medication Instructions Recorded Confirmed Type cetirizine 10 mg tablet 10 mg PO DAILY PRN ALLERGIES 11/14/19 04/02/24 History estradiol 0.0375 mg/24 hr weekly 1 patch transdermal WEEKLY 09/05/23 04/02/24 History transdermal patch diltiazem HCl 180 mg 180 mg PO DAILY #90 caps 09/06/23 04/11/24 Rx capsule,extended release 24 hr sertraline 50 mg tablet 50 mg PO DAILY #90 tabs 09/06/23 04/11/24 Rx bupropion HCl 150 mg 24 hr tablet, 150 mg PO QAM #90 tabs 10/31/23 04/11/24 Rx extended release losartan 100 mg tablet 100 mg PO DAILY #90 tabs 10/31/23 04/11/24 Rx hydrocodone 5 mg-acetaminophen 325 1 tablet PO Q4H PRN pain #20 tabs 04/11/24 Rx mg tablet Laboratory Tests 04/11/24 04/11/24 11:31 11:43 WBC 6.5 K/mm3 (4.5-10.0) RBC 4.22 M/mm3 (4.2-5.4) Hgb 11.9 L g/dL (12.0-15.0) Hct 36.2 L % (37.0-47.0) MCV 85.8 fl (80-100) MCH 28.2 pg (26-34) MCHC 32.9 g/dl (32-36) RDW 12.5 % (11.5-14.5) Plt Count 322 k/mm3 (150-375) MPV 9.0 fl (7.4-10.4) Immature Gran % (Auto) 0.3 % (0-0.5) Neut % (Auto) 54.1 % (45.5-73.1) Lymph % (Auto) 34.1 % (18.3-44.2) [place] % (Auto) 7.0 % (2.6-8.5) Eos % (Auto) 3.9 % (0-4.4) Baso % (Auto) 0.6 % (0.2-1.2) Lymph # (Auto) 2.20 K/mm3 (0.9-3.2) [place] # (Auto) 0.5 K/mm3 (0.1-0.6) Eos # (Auto) 0.3 K/mm3 (0-0.3) Baso # (Auto) 0.0 K/mm3 (0.0-0.1) Abs Immat Gran (auto) 0.02 K/mm3 (0.00-0.031) Absolute Neuts (auto) 3.5 K/mm3 (1.3-6.7) Absolute Nucleated RBC 0.000 K/mm3 (0.0-0.012) Nucleated RBC % 0.0 % (0.0-0.2) POC Urine HCG, Qual Negative (Negative) Patient hx anesthesia problems: none Family hx anesthesia problems: none Results Review: All pre-operative results and documents have been reviewed as part of the pre- operative evaluation. FORMERLY [facility], [facility] Past Medical History Medical History Abdominal tenderness, unspecified site Abnormal biliary HIDA scan Acute right ankle pain Allergic rhinitis, unspecified Anxiety Colon cancer screening Depression Dysfunctional gallbladder Early satiety Epigastric abdominal pain Essential (primary) hypertension Herpes zoster without complication Hypertension Onychomycosis of toenail Pure hypercholesterolemia, unspecified Tinea versicolor URI, acute Surgical History Surgical History History of Achilles tendon repair History of cholecystectomy History of tonsillectomy Family History Family History Mother Hypertension Father Family history of diabetes mellitus in first degree relative Other Family history of malignant neoplasm Social History Social History Smoking status: Never smoker Second hand tobacco smoke exposure: No Alcohol intake: current Drinks per week: 8 Substance use: never Substance use type: does not use Do You Feel Safe in your Home?: Yes Lack of Transportation: No Lack of Food: Never True Current Housing: I Have Housing Concerned About Future Housing: No Difficulty Paying Gas/Electric Bills: No Difficulty Paying for Meds: No Currently Unemployed: No Education: Master's Degree or Higher Difficulty w/ Childcare or Family Care: No Living arrangements: with family Occupation/Education: occupation 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 Informed Consent: The patient's anesthetic plan and its attendant risks and benefits were discussed with the patient/family/POA. Questions were solicited and answers provided to the satisfaction of the patient/family/POA.
[2024-04-11] MEDS: ceFAZolin 2 GM/D5W 50 ML 2 GM/50 ML BAG IVPB (14:25)
--- NOTE | 2024-04-11 15:24 | P.OP_ITS ---
Procedure Note - Detailed Date of Procedure 04/11/24 Pre-op Diagnosis Heavy Bleeding, Fibroids, Pelvic Pain Post-op Diagnosis Same Procedure Performed Robotic total vaginal hysterectomy and bilateral salpingectomy Surgeon Gonzalo Teran MD Anesthesia General Indications 48-year-old female with symptomatic uterine fibroids pelvic pain Findings enlarged fibroid uterus. Normal-appearing ovaries and tubes bilaterally. Description of Procedure Patient prepped draped in the normal sterile fashion placed in dorsal lithotomy position. Under excellent general trach anesthesia weighted speculum placed posterior fornix vagina. Anterior lip of the cervix grasped with a single-tooth tenaculum. Uterus sounded to 10cm. Serial dilatation with fragmented dilators performed followed by passage of the 8. NARAYAN and 3. Cold cup. Next the 16 [place] catheter was placed in the bladder. The single-tooth and weighted speculum removed and the gloves were changed. A supraumbilical incision made the Veress needle passed in the abdomen. Abdomen filled with CO2 gas to 15 of mercury. The 8mm trocar advanced in the abdomen. Downside visualized no injury seen. Patient placed in Trendelenburg and right left lateral quadrant incisions made. 8Mm trocars were advanced in the abdomen under direct visualization assuring no injury. A right upper quadrant incision made the 8mm trocar advanced under direct visualization assuring no injury. The robot was docked. Attention was turned to the agency legal counsel. The left round ligament was clasped, burned, cut a bladder flap was formed by sharply dissecting the peritoneum across to the opposite round ligament which was clamped, burned, cut. Next the left fallopian tube was sharply dissected away from the ovarian complex and left attached to its uterine origin. In similar fashion right fallopian tube was skeletonized sharply dissecting it away from the ovarian complex and left in its uterine origin. Next the utero-ovarian ligament was skeletonized to conserve the left ovary this was clamped, burned, cut and brought to level of previously cut round ligament. In similar fashion on the right conserving the right ovary, the utero-ovarian ligament was clamped, burned, cut and brought to level of previously cut round ligament. The cardinal broad ligaments on the left were then skeletonized clamping burning cutting and hugging the cervix uterus until the large tortuous veins could be seen on the left these were individually clamped, burned, cut. In similar fashion the cardinal broad ligaments on the right were skeletonized clamping burning cutting and hugging the cervix uterus until the uterine vessels could be seen on the right these were individually clamped, burned, cut. Hemostasis was assured and uterine blanching was noted. Colpotomy incision was made cervix uterus and tubes removed through the vagina. The vagina was then closed with continuous running 0V lock from lateral edge to lateral edge back to the midline. Irrigation undertaken and blood loss estimated at25cc. Hemostasis was assured the robot was undocked. The gas removed from the abdomen. The trocars removed the incisions closed with 4 Monocryl and glue. The patient went to recovery in satisfactory condition. All sponge, needle, instrument counts were correct. There were no immediate complications Estimated Blood Loss 25 Drains No Packing No Pathology Yes Complications No immediate complications Condition Stable Disposition PACU
--- NOTE | 2024-04-11 15:28 | P.DS_ITS ---
DS: Admitting Diagnosis Discharge Date 03/12/2024 Admitting Diagnosis uterine fibroids/excessive heavy bleeding DS: Discharge Diagnosis Discharge Diagnosis (1) Uterine fibroid: Code(s): D25.9 - Leiomyoma of uterus, unspecified Status: Acute (2) Excessive bleeding: Code(s): R58 - Hemorrhage, not elsewhere classified Status: Acute DS: Summary Hospital Course Reason for hospitalization: patient was admitted for robotic total vaginal hysterectomy bilateral salpingectomy on 03/11/2024. Hospital Course: Patient's hospital course unremarkable. She remained afebrile. She was up, voiding without difficulty, eating regular diet, ambulating, and generally without complaints Time Spent with Patient Time attestation: Total time spent providing and/or coordinating discharge services: Exam 2 Const: General: cooperative, healthy appearing and comfortable Orientation/consciousness: oriented to person, oriented to place and oriented to time HENMT: Head: normal to inspection Resp: Effort & Inspection: normal respiratory effort Cardio: Rate: regular rate Rhythm: regular rhythm Heart sounds: S1 n ormal heart sound present and S2 normal heart sound present GI: Inspection: normal to inspection and incision ( wounds are clean dry and intact) DS: Data Data Completed and Pending Pending studies at discharge: Pending at discharge 04/11/24 15:08 Surgical [PTH] Routine Labs on day of discharge: Labs from last 24 hours 04/11/24 04/11/24 11:43 11:31 WBC 6.5 RBC 4.22 Hgb 11.9 L Hct 36.2 L MCV 85.8 MCH 28.2 MCHC 32.9 RDW 12.5 Plt Count 322 MPV 9.0 Immature Gran % (Auto) 0.3 Neut % (Auto) 54.1 Lymph % (Auto) 34.1 [place] % (Auto) 7.0 Eos % (Auto) 3.9 Baso % (Auto) 0.6 Lymph # (Auto) 2.20 [place] # (Auto) 0.5 Eos # (Auto) 0.3 Baso # (Auto) 0.0 Abs Immat Gran (auto) 0.02 Absolute Neuts (auto) 3.5 Absolute Nucleated RBC 0.000 Nucleated RBC % 0.0 POC Urine HCG, Qual Negative Discharge Plan Discharge Patient Disposition: Home, Self-Care Stand Alone Forms: General Discharge Instructions Follow-up/Referrals: Gonzalo Irwin MD [Physician] - Discharge Medications: New hydrocodone-acetaminophen 5-325 mg tablet 1 tablet PO Q4H PRN (Reason: pain) Qty: 20 0RF No Action estradiol 0.0375 mg/24 hr patch weekly 1 patch transdermal WEEKLY sertraline 50 mg tablet 50 mg PO DAILY Qty: 90 1RF cetirizine 10 mg Tablet 10 mg PO DAILY PRN (Reason: ALLERGIES) diltiazem HCl 180 mg capsule,extended release 24hr 180 mg PO DAILY Qty: 90 3RF bupropion HCl 150 mg tablet extended release 24 hr 150 mg PO QAM Qty: 90 3RF losartan 100 mg tablet 100 mg PO DAILY Qty: 90 3RF
[2024-04-11] MEDS: LACTATED RINGERS 1,000 ML 30 ML IV CONT ×2 (15:36)
[2024-04-11] MEDS: fentaNYL CITRATE INJ (*CRX) 100 MCG/2 ML VIAL 25 MCG IV PUSH ×8 (15:43→16:12)
--- NOTE | 2024-04-11 15:52 | SUR.PHASEI ---
1550: patient states pre-op nurse gave her tylenol and toradol.
[2024-04-11] MEDS: HYDROmorphone HCL INJ (*CRX) 1 MG/ML SYR 0.5 MG IV PUSH ×4 (16:16→16:52)
[2024-04-11] MEDS: SIMETHICONE 80 MG TAB.CHEW PO ×2 (17:20→23:43)
[2024-04-11] MEDS: KETOROLAC 30 MG/ML VIAL (*BKC) IV PUSH ×2 (17:21→23:37)
[2024-04-11] MEDS: DOCUSATE SODIUM 100 MG CAPSULE PO (17:21)
[2024-04-11] MEDS: oxyCODONE HCL (*CRX) 5 MG TAB IR 10 MG PO (17:21)
[2024-04-11] MEDS: ONDANSETRON INJ 4 MG/2 ML VIAL IV PUSH ×2 (17:31→23:37)
[2024-04-12 00:30] VITALS: BP 111/64; PULSE 71; RESP 16; TEMP 37; O2SAT 99
[2024-04-12] MEDS: oxyCODONE HCL (*CRX) 5 MG TAB IR PO ×2 (02:42→09:56)
[2024-04-12] MEDS: KETOROLAC 30 MG/ML VIAL (*BKC) IV PUSH (05:26)
[2024-04-12] MEDS: ACETAMINOPHEN 500 MG TABLET 1000 MG PO (05:27)
--- NOTE | 2024-04-12 05:42 | PM.GYNPNOP ---
INTELLIGENCE SUPPORT OFFICER - A/P Postoperative Procedures: Procedures Operation Date: 04/11/24 13:00 Actual Procedure Side Surgeon p Robotic Assisted Total Vaginal Hysterectomy with Bilateral Salpingectomy Bilateral Gonzalo Teran MD Postoperative day: 1 Postoperative status: doing well Postoperative plan: routine post-op care, see orders, ambulate, advance diet, voiding trials and discharge Time Spent With Patient Time: Total time spent is greater than 50% in coordination of care (as documented) at patient's floor/unit and/or counseling patient: Time with patient: less than 15 minutes INTELLIGENCE SUPPORT OFFICER- PN:Subj Post-Op Subjective Date/time seen: 04/12/24 05:42 Subjective: patient reports feeling better, patient has no complaints, patient desires discharge, pain is well controlled and patient is tolerating oral intake Exam Const: General: cooperative, healthy appearing and comfortable Orientation/consciousness: oriented to person, oriented to place and oriented to time Resp: Effort & Inspection: normal respiratory effort Cardio: Rate: regular rate Rhythm: regular rhythm Heart sounds: S1 normal heart sound present and S2 normal heart sound present GI: Inspection: normal to inspection and incision (cdi) INTELLIGENCE SUPPORT OFFICER - PN: Obj Data Vital Signs Vital Signs: Vital Signs - 24 hr 04/11/24 11:35 04/11/24 15:36 04/11/24 15:45 Temperature 98.1 F 97.5 F L Pulse Rate 77 75 63 Respiratory Rate 18 12 12 Blood Pressure 145/87 H 115/82 127/88 Pulse Oximetry 100 100 100 Oxygen Delivery Room Air Simple Face Mask Simple Face Mask Oxygen Flow Rate 8 8 04/11/24 16:00 04/11/24 16:05 04/11/24 16:15 Temperature Pulse Rate 63 68 Respiratory Rate 12 13 Blood Pressure 128/82 131/89 Pulse Oximetry 100 100 100 Oxygen Delivery Simple Face Mask Room Air Room Air Oxygen Flow Rate 8 04/11/24 16:30 04/11/24 16:45 04/11/24 17:10 Temperature 98.5 F 97.1 F L Pulse Rate 68 73 82 Respiratory Rate 13 13 16 Blood Pressure 121/76 118/83 114/74 Pulse Oximetry 96 96 Oxygen Delivery Room Air Room Air Oxygen Flow Rate 04/11/24 18:30 04/12/24 00:30 Temperature 97.7 F 98.6 F Pulse Rate 70 71 Respiratory Rate 16 16 Blood Pressure 112/70 111/64 Pulse Oximetry 99 99 Oxygen Delivery Oxygen Flow Rate Intake/Output Intake/Output: Intake & Output 04/09/24 04/10/24 04/11/24 04/12/24 23:59 23:59 23:59 23:59 Intake Total 850 Output Total 825 Balance 25 Meds/Results Medications: Active Medications Generic Name Dose Route Start Last Admin Trade Name Freq PRN Reason Stop Dose Admin Acetaminophen 1,000 mg 04/11/24 18:00 04/12/24 05:27 Acetaminophen 500 Mg Tablet PO 1,000 mg Q6HR [facility] Administration Docusate Sodium 100 mg 04/11/24 17:00 04/11/24 17:21 Docusate Sodium 100 Mg Capsule PO 100 mg BID RAPHAEL Administration Enoxaparin Sodium 40 mg 04/12/24 09:00 Enoxaparin 40 Mg/0.4 Ml Syringe SUB-Q DAILY [facility] Dextrose/Lactated Ringer's 1,000 mls @ 125 mls/hr 04/11/24 16:55 Dextrose 5%/Lactated Ringers IV CONT .Q8H [facility] Ibuprofen 600 mg 04/12/24 12:00 Ibuprofen 600 Mg Tablet PO Q6HR [facility] Ketorolac Tromethamine 30 mg 04/11/24 18:00 04/12/24 05:26 Ketorolac 30 Mg/Ml Vial (*Bkc) IV PUSH 04/12/24 06:01 30 mg Q6HR [facility] Administration Naloxone HCl 0.1 mg 04/11/24 16:55 Naloxone Hcl 0.4 Mg/Ml Vial IV PUSH Q2M PRN Respiratory rate less than 10 Ondansetron HCl 4 mg 04/11/24 16:55 04/11/24 23:37 Ondansetron Inj 4 Mg/2 Ml Vial IV PUSH 4 mg Q6H PRN Administration Nausea And Vomiting Oxycodone HCl 5 mg 04/11/24 16:55 04/12/24 02:42 Oxycodone Hcl (*Crx) 5 Mg Tab Ir PO 5 mg Q4H PRN Administration Pain Rated 4-6 Oxycodone HCl 10 mg 04/11/24 16:55 04/11/24 17:21 Oxycodone Hcl (*Crx) 5 Mg Tab Ir PO 10 mg Q6H PRN Administration Pain Rated 7-10 Simethicone 80 mg 04/11/24 17:00 04/11/24 23:43 Simethicone 80 Mg Tab.Chew PO 80 mg TIDWM RAPHAEL Administration Labs 04/11/24 11:43 Labs: Laboratory Results - last 24 hr 04/11/24 04/11/24 11:31 11:43 WBC 6.5 RBC 4.22 Hgb 11.9 L Hct 36.2 L MCV 85.8 MCH 28.2 MCHC 32.9 RDW 12.5 Plt Count 322 MPV 9.0 Immature Gran % (Auto) 0.3 Neut % (Auto) 54.1 Lymph % (Auto) 34.1 [place] % (Auto) 7.0 Eos % (Auto) 3.9 Baso % (Auto) 0.6 Lymph # (Auto) 2.20 [place] # (Auto) 0.5 Eos # (Auto) 0.3 Baso # (Auto) 0.0 Abs Immat Gran (auto) 0.02 Absolute Neuts (auto) 3.5 Absolute Nucleated RBC 0.000 Nucleated RBC % 0.0 POC Urine HCG, Qual Negative
[2024-04-12 05:57] LABS: Basophils Percent Auto 0.2 % (0.2-1.2); Hematocrit 36.1 % (37.0-47.0); Hemoglobin 11.8 g/dL (12.0-15.0); Immature Granulocyte Absolute 0.06 K/mm3 (0.00-0.031); Immature Granulocyte Percent A 0.5 % (0-0.5); Lymphocytes Absolute Auto 1.28 K/mm3 (0.9-3.2); Lymphocytes Percent Auto 10.3 % (18.3-44.2); Mean Corpuscular HGB Conc 32.7 g/dl (32-36); Mean Corpuscular Hemoglobin 27.8 pg (26-34); Mean Corpuscular Volume 85.1 fl (80-100); Mean Platelet Volume 9.1 fl (7.4-10.4); Monocytes Absolute Auto 0.6 K/mm3 (0.1-0.6); Monocytes Percent Auto 4.9 % (2.6-8.5); Neutrophils Absolute Auto 10.5 K/mm3 (1.3-6.7); Neutrophils Percent Auto 84.1 % (45.5-73.1); Platelet Count Result 337 k/mm3 (150-375); Red Blood Count 4.24 M/mm3 (4.2-5.4); Red Cell Distribution Width 12.4 % (11.5-14.5); White Blood Count 12.5 K/mm3 (4.5-10.0)
[2024-04-12 07:48] VITALS: BP 115/80; PULSE 68; RESP 18; TEMP 36.6; O2SAT 100
[2024-04-12 08:15] VITALS: BP 115/80; PULSE 68; RESP 18; TEMP 36.6; O2SAT 100
[2024-04-12] MEDS: ENOXAPARIN 40 MG/0.4 ML SYRINGE SUB-Q (09:40)
[2024-04-12] MEDS: SIMETHICONE 80 MG TAB.CHEW PO (09:40)
[2024-04-12] MEDS: DOCUSATE SODIUM 100 MG CAPSULE PO (09:40)
[2024-04-12] MEDS: ONDANSETRON HCL ODT 4 MG TABLET (09:57)
== END 2024-04-12 10:32 | disposition home or self-care (01) ==
LOC: ANHSURGERY 13:50 → ANHOB2 16:57
PROVIDERS: PCP Internal Medicine; Visit Provider Obstetrics & Gynecology
PROC: (CPT 58552; principal; 2024-04-11 13:00)
DX: D25.1 Intramural leiomyoma of uterus (principal); I10 Essential (primary) hypertension; E78.00 Pure hypercholesterolemia, unspecified; F41.9 Anxiety disorder, unspecified; F32.A Depression, unspecified; K82.8 Other specified diseases of gallbladder; Z79.891 Long term (current) use of opiate analgesic; Z98.890 Other specified postprocedural states; Z90.49 Acquired absence of other specified parts of digestive tract; Z80.9 Family history of malignant neoplasm, unspecified
CPT/HCPCS: 58552; S2900; 36415; 85025; 86850; 86880; 86900; 86901; 88307; 93005; A9270; J0690; J1100; J1171; J1650; J1885; J2250; J2405; J2704; J3010; J7030; J7120

== ENCOUNTER 2025-05-18 14:21 | Outpatient (CLI) | payer OTHER, BC, SELFPAY ==
--- NOTE | ~2025-05-18 | XR_ITS ---
XR lumbar spine 2-3V Indication: M54.16 - Radiculopathy, lumbar region Comparison: None Findings: The vertebral heights are intact. No fracture or subluxation. The disc heights are intact. Soft tissues unremarkable Impression: No acute abnormality. Reviewed, dictated and finalized at location [facility] Impression: No acute abnormality.
== END 2025-05-18 14:22 | disposition home or self-care (01) ==
PROVIDERS: PCP Internal Medicine; Visit Provider Internal Medicine
DX: M54.16 Radiculopathy, lumbar region (principal)
CPT/HCPCS: 72100